=== PATIENT | female | born 1980 | race Caucasian/White ===

== ENCOUNTER 2018-04-18 19:14 | Emergency (ER) | payer MEDICAID ==
[~2018-04-18] VITALS: Ht 175.3 cm; Wt 56.0 kg
[2018-04-18] MEDS ORDERED: SODIUM CHLORIDE 0.9% 1,000 ML IV ONE (22:34)
[2018-04-19 03:21] LABS: EOSINOPHILS % 0.6 % (0.0-5.0); HEMATOCRIT. 36.6 % (36.0-48.0); HEMOGLOBIN. 12.7 g/dL (12.0-16.0); LYMPHOCYTES % 9.5 % (20.0-50.0); MEAN CORPUSCULAR HEMOGLOBIN 32.2 pg (28.0-32.0); MEAN CORPUSCULAR VOLUME 92.7 fL (81.0-99.0); MEAN PLATELET VOLUME 9.4 fl (7.4-10.4); MONOCYTES % 7.9 % (2.0-8.0); PLATELET 263 x1000/uL (130-400); RED BLOOD CELL COUNT 3.95 mill/uL (4.2-5.4); RED CELL DISTRIBUTION WIDTH 15.3 % (11.6-14.6)
[2018-04-19 03:26] LABS: PROTHROMBIN TIME 10.7 sec (9.4-11.6)
[2018-04-19 03:27] LABS: CHLORIDE 108 mEq/L (98-107)
[2018-04-19 03:30] LABS: HCG SCREEN NEGATIVE
[2018-04-19 03:31] LABS: ETHANOL BLOOD 22 mg/dL
[2018-04-19 03:34] LABS: AMMONIA 26 uMol/L (<32); CREATINE KINASE 45 IU/L (26-192)
[2018-04-19] MEDS ORDERED: SODIUM CHLORIDE 0.9% 1,000 ML IV NR (04:05)
[2018-04-19 07:25] LABS: CLARITY URINE CLOUDY (CLEAR); COLOR URINE YELLOW (YELLOW); KETONES URINE NEGATIVE (NEGATIVE); LEUKOCYTE ESTERASE URINE 2+ (NEGATIVE); NITRITE URINE NEGATIVE (NEGATIVE); OCCULT BLOOD URINE NEGATIVE (NEGATIVE); PROTEIN URINE NEGATIVE (NEGATIVE); SPECIFIC GRAVITY URINE 1.014 (1.005-1.030); UROBILINOGEN URINE 0.2 E.U./dL (0.2-1.0)
[2018-04-19 07:37] LABS: OPIATES URINE SCREEN NEGATIVE (NEGATIVE)
[2018-04-19 07:38] LABS: *AMPHETAMINES SCREEN URINE NEGATIVE (NEGATIVE); *BARBITURATES SCREEN URINE NEGATIVE (NEGATIVE); PHENCYCLIDINE URINE SCREEN NEGATIVE (NEGATIVE)
[2018-04-19 07:39] LABS: *BENZODIAZEPINES SCREEN URINE NEGATIVE (NEGATIVE); *COCAINE SCREEN URINE NEGATIVE (NEGATIVE); METHADONE URINE SCREEN NEGATIVE (NEGATIVE)
[2018-04-19 07:41] LABS: CANNABINOID URINE SCREEN PRESUMTIVE POSITIVE (NEGATIVE)
[2018-04-19] MEDS ORDERED: CEFTRIAXONE 1 G PREMIX 50 ML IV ONE (14:00)
[2018-04-19 18:02] VITALS: BP 114/84
== END 2018-04-19 18:04 | disposition short-term general hospital (02) ==
LOC: ER 20:06
DX: E87.2 Acidosis (principal); F23 Brief psychotic disorder; R45.851 Suicidal ideations; Z91.018 Allergy to other foods
CPT/HCPCS: 36415; 70450; 74176; 80053; 80305; 80307; 80329; 81003; 82140; 82550; 83605; 83690; 84443; 84703; 85025; 85610; 96361; 96365; 99285; G0482; J0696; J7030

== ENCOUNTER 2018-05-21 06:28 | Emergency (ER) | payer MEDICAID ==
[~2018-05-21] VITALS: Ht 175.3 cm; Wt 77.0 kg
[2018-05-21] MEDS ORDERED: IBUPROFEN 600MG TABLET PO ONE (07:45)
[2018-05-21 07:50] VITALS: BP 125/78
[2018-05-21 08:22] LABS: CLARITY URINE CLEAR (CLEAR); COLOR URINE YELLOW (YELLOW); KETONES URINE NEGATIVE (NEGATIVE); LEUKOCYTE ESTERASE URINE NEGATIVE (NEGATIVE); NITRITE URINE NEGATIVE (NEGATIVE); OCCULT BLOOD URINE NEGATIVE (NEGATIVE); PH URINE 6.5 (4.5-8.0); PROTEIN URINE NEGATIVE (NEGATIVE); SPECIFIC GRAVITY URINE 1.019 (1.005-1.030); UROBILINOGEN URINE 0.2 E.U./dL (0.2-1.0)
== END 2018-05-21 09:45 | disposition home or self-care (01) ==
LOC: ER 06:28
DX: R30.0 Dysuria (principal); R10.30 Lower abdominal pain, unspecified; R35.0 Frequency of micturition; R03.0 Elevated blood-pressure reading, without diagnosis of hypertension; F22 Delusional disorders
CPT/HCPCS: 81003; 81025; 99283; Z7610

== ENCOUNTER 2018-05-23 17:58 | Emergency (ER) | payer MEDICAID ==
[~2018-05-23] VITALS: Ht 165.1 cm; Wt 67.0 kg
[2018-05-23 17:59] VITALS: BP 112/74
== END 2018-05-23 18:23 | disposition left against medical advice (07) ==
LOC: ER 17:58
DX: R10.9 Unspecified abdominal pain (principal); F31.9 Bipolar disorder, unspecified; F17.200 Nicotine dependence, unspecified, uncomplicated; F12.10 Cannabis abuse, uncomplicated; Z79.01 Long term (current) use of anticoagulants; Z53.21 Procedure and treatment not carried out due to patient leaving prior to being seen by health care provider
CPT/HCPCS: 99283